=== PATIENT | female | born 1935 | race Asian ===

== ENCOUNTER → 2016-07-05 | Outpatient (CLI) | payer MEDICARE, OTHER ==
[2015-07-06 15:22] VITALS: BP 114/53
[~2016-07-05] MED LIST: AMLO5TAB2 PO; BACL20TA PO; BRIN8DRO OP; ESOM40CA PO; FLUT50DI IH; GLUC1TAB44 PO; IBUP400T PO; LIDO700A4 TP; METF10002 PO; METF500T4 PO; NAPR500T3 PO; POTA20TA4 PO; PRAV40TA PO; TRAV5DRO EACHEYE; TRAZ100T12 PO; TRIA15CR TP; TRIA1TAB PO; ZOLP5TAB5 PO
--- NOTE | 2016-07-05 14:29 | RAD ---
DATE: 07/05/2016 EXAM: MAMMO AMARILYS SCREENING BILATERAL HISTORY: Routine screening COMPARISON: 06/21/2015 This study was interpreted with the benefit of Computerized Aided Detection (CAD). FINDINGS: 2-D and 3-D tomosynthesis imaging was performed in CC and MLO projections. The breasts are predominantly fatty replaced. No new or enlarging breast densities are seen. No suspicious microcalcifications are detected. IMPRESSION: Stable mammograms without evidence of malignancy. BI-RADS CATEGORY: 1 NEGATIVE RECOMMENDED FOLLOW-UP: 12M 12 MONTH FOLLOW-UP PQRS compliance statement: Patient information was entered into a reminder system with a target due date for the next mammogram. Mammography is a sensitive method for finding small breast cancers, but it does not detect them all and is not a substitute for careful clinical examination. A negative mammogram does not negate a clinically suspicious finding and should not result in delay in biopsying a clinically suspicious abnormality. "Our facility is accredited by the [employer] Mammography Program."
== END | disposition home or self-care (01) ==
LOC: MAMMO 13:20
PROVIDERS: ATTEND Family Medicine
DX: Z12.31 Encounter for screening mammogram for malignant neoplasm of breast (principal)
CPT/HCPCS: 77063; G0202; 77067

== ENCOUNTER → 2020-10-12 | Outpatient (CLI) | payer MEDICARE, OTHER ==
[2015-07-06 15:22] VITALS: BP 114/53
[~2020-10-12] MED LIST changes: +AMLO-186 PO; -AMLO5TAB2 PO; -IBUP400T PO; +IBUP400T18 PO; -METF10002 PO; +METF10007 PO; +METF500T16 PO; -METF500T4 PO; +NAPR-514 PO; -NAPR500T3 PO; +TRAZ-125 PO; -TRAZ100T12 PO; -TRIA15CR TP; +TRIA15CR50 TP
--- NOTE | 2020-10-12 17:12 | RAD ---
EXAM: Left ribs, 3 views. HISTORY: Left rib pain. COMPARISON: None. FINDINGS: There are no displaced left rib fractures. There is no pneumothorax or pleural effusion. Th ere are atherosclerotic calcifications of the aorta. IMPRESSION: 1. No displaced left rib fractures. Electronically signed by: Gloria Adams MD (10/12/2020 5:10 PM) [id number]
== END ==
LOC: RAD 13:58
PROVIDERS: ATTEND Family Medicine
DX: R07.81 Pleurodynia (principal); I70.0 Atherosclerosis of aorta
CPT/HCPCS: 71100

== ENCOUNTER → 2021-05-05 | Outpatient (CLI) | payer MEDICARE, OTHER ==
[2015-07-06 15:22] VITALS: BP 114/53
[~2021-05-05] MED LIST changes: +POTA-121 PO; -POTA20TA4 PO
--- NOTE | 2021-05-05 15:55 | RAD ---
EXAM: BONE SCINTIGRAPHY. HISTORY: Left rib pain. TECHNIQUE: Following the intravenous injection of 25.2 mCi of Tc-99m labeled methylene diphosphonate (MDP), delayed images of the thorax were performed in anterior and posterior projections. Additional delayed images of the thorax in the lateral projections were obtained. COMPARISON: Rib radiographs 10/12/2020. FINDINGS: There are no foci of intense uptake suggestive of osseous metastatic disease or fracture. N ormal renal contours. IMPRESSION: 1. No scintigraphic evidence of rib fracture or osseous metastatic disease. Electronically signed by: Stu Ardon MD (05/05/2021 3:52 PM) [id number]
== END ==
LOC: NM 09:34
PROVIDERS: ATTEND Family Medicine
DX: S29.8XXA Other specified injuries of thorax, initial encounter (principal); R07.81 Pleurodynia; M94.0 Chondrocostal junction syndrome [Tietze]; X58.XXXA Exposure to other specified factors, initial encounter; Y93.89 Activity, other specified; Y92.89 Other specified places as the place of occurrence of the external cause; Y99.8 Other external cause status
CPT/HCPCS: 78300; A9503

== ENCOUNTER → 2021-05-18 | Day surgery (SDC) | payer MEDICARE, OTHER ==
[~2021-05-18] MED LIST changes: +ACET500S IV; +ATOR10TA60 PO; +GLIP10TA13 PO
[2021-05-18 14:33] VITALS: BP 135/76
== END | disposition home or self-care (01) ==
LOC: SURG 14:06
PROVIDERS: ATTEND Anesthesiology
DX: E11.40 Type 2 diabetes mellitus with diabetic neuropathy, unspecified (principal); I10 Essential (primary) hypertension; G62.9 Polyneuropathy, unspecified; G89.4 Chronic pain syndrome; E78.00 Pure hypercholesterolemia, unspecified; Z90.49 Acquired absence of other specified parts of digestive tract; Z98.890 Other specified postprocedural states; Z85.00 Personal history of malignant neoplasm of unspecified digestive organ; Z79.899 Other long term (current) drug therapy; Z79.84 Long term (current) use of oral hypoglycemic drugs
CPT/HCPCS: 99204; G0463